=== PATIENT | male | born 1945 | race Caucasian/White ===

== ENCOUNTER 2024-03-16 10:45 | Emergency (ER) | payer MEDICARE, SELFPAY ==
[2024-03-16] VITALS (24 sets, daily range): BP systolic 118–160; BP diastolic 75–108
--- NOTE | 2024-03-16 11:24 | ED.GENMED ---
History of Present Illness
General
Chief Complaint: Heart Rate Problem
Source: patient and family
Exam Limitations: none
Time Seen by Provider: 03/16/24 11:05
History of Present Illness
History of Present Illness:
See MDM
Past History
Past History
ED Past Medical History: Arrthythmia, HTN and Hypercholesterolemia
ED Past Surgical History: Cardiac
Social History
Tobacco: Non-smoker
Alcohol: None
Phy Exam
Physical Exam
Physical Exam:
See MDM
Course
Orders/Labs/Results
Orders:
Orders
03/16/24 11:01
ECG [Electrocardiogram (*1)] Urgent
Reason for Study: Tachycardia
EKG- Treatment ONCE
03/16/24 11:22
Diltiazem 125 mg/125 ml Nss [Cardizem] 125 mg in 125 ml .ROUTE .STK-MED
Diltiazem 125 mg/125 ml Nss [Cardizem] 125 mg in 125 ml IV NOW
Initial dose in mg/hr, then titrate:: 5
Titrate to keep:: Heart rate 80-100 bpm
Titrate by mg/hr:: 5 mg/hr
Frequency of titrations (minutes):: 15
Maximum dose in mg/hr:: 15
Diltiazem HCl [Cardizem] 20 mg IV NOW STA
Diltiazem HCl [Cardizem] 25 mg .ROUTE .STK-MED ONE
03/16/24 11:25
Complete Blood Count/With Diff Urgent
Comprehensive Metabolic Panel Urgent
Free T4 Urgent
Magnesium Urgent
Comment: ADD ON
PTT Urgent
Prothrombin Time Urgent
TSH Reflex To Free T4 Urgent
Comment: ADD ON
03/16/24 11:27
Add On- LAB Urgent
Tests Added?: Magnesium, TSH reflex Free T4
03/16/24 12:56
Metoprolol Xl [Toprol Xl] 25 mg PO NOW STA
Abnormal Lab Results
03/16/24
11:25
RBC 4.63 L 10^6/uL
(4.70-6.10)
Abs Immat Gran (auto) 0.1 H 10^3/uL
(0-0.05)
Absolute Monos (auto) 1.2 H 10^3/uL
(0.1-0.6)
Lymphocytes % 16.6 L %
(20.5-51.1)
Monocytes % 12.4 H %
(1.7-9.3)
PT 20.8 H Sec
(11.4-14.6)
APTT 43.4 H Sec
(23.4-35.0)
BUN 26 H mg/dl
(9-20)
Creatinine 1.4 H mg/dL
(0.7-1.3)
Glucose 118 H mg/dl
(70-99)
TSH (Reflex) 8.59 H uIU/ml
(0.47-4.68)
03/16/24 11:25
03/16/24 11:25
Vital Signs
Initial and Last Documented VS:
Initial Vital Signs
Temp Pulse Resp BP Pulse Ox
97.6 F 163 20 152/108 96
03/16/24 10:57 03/16/24 10:57 03/16/24 10:57 03/16/24 10:57 03/16/24 10:57
Last Documented Vital Signs
Temp Pulse Resp BP Pulse Ox
97.6 F 82 19 127/86 96
03/16/24 10:57 03/16/24 14:50 03/16/24 14:50 03/16/24 14:50 03/16/24 14:50
MDM/Problems Addressed
Differential Diagnosis Includes:
HPI and MDM Narrative:
79-year-old male presenting for chest tightness and rapid heart rate. Patient states he was diagnosed with A-fib over the past few weeks and he was placed on Xarelto. He was admitted at [facility] and required an aortic valve replacement. Patient
states he received his monitoring engineer today and he noted that his heart rate was fast. It is not certain how long patient has been in A-fib.
Given the short duration of Xarelto so far, he is not a cardioversion candidate. Will give dose of Cardizem and place on cardizem drip
Physical exam
General: Well appearing and non-toxic
HEENT: protecting airway
Neck: appears supple
CV: No evidence of cyanosis. Tachycardic and irregular
Resp: No accessory muscle use. Lungs clear
Abd: Non-distended
Extremities: No deformities
Neuro: alert
Psych: Normal affect
Skin: Intact
Problems Addressed including Acute and Chronic Conditions affecting care:
1. A-fib with RVR
Acuity: acute
Prognosis: unstable
Details: Given the short duration of Xarelto so far, he is not a cardioversion candidate. Will place on Cardizem drip
Updates
After IV push of Cardizem, patient's heart rate went to the 80s. All this chest discomfort resolved. He was then placed on the Cardizem drip. He remained in rate controlled a flutter. At this time, I gave an extra dose of metoprolol and I turned
off the drip. Patient has remained in the 80s and symptom-free for over an hour. Patient states he wants to go home and will follow-up with his cardiothoracic surgeon at [facility] tomorrow. Discussed taking an extra dose of metoprolol before bed
Differential Diagnosis (but not limited to): A-fib with RVR, hyperthyroidism, ACS
Testing considered: Chest x-ray
Drug therapy (if applicable): OTC meds, please see d/c instruction regarding Rx drugs
Amount and/or Complexity of Data Reviewed
Clinical info obtained from: Patient
External data reviewed: N/A
Labs I independently reviewed (but not limited to): Free T4 normal
Radiology: N/A
Pulse Ox: not hypoxic
EKG independently reviewed: A-fib with RVR, normal axis, no STEMI
User Interface Engineer: A-fib
Critical Care: The high probability of a clinically significant, sudden or life threatening deterioration of the cardiovascular system(s) required my full and direct attention, intervention and personal management. The aggregate critical care time
was 33 minutes. This time is in addition to time spent performing reported procedures but includes the following:
[x] Data Review and interpretation
[x] Patient assessment and monitoring of vital signs
[x] Documentation
[x] Medication orders and management
Risk of Complication:
Social Determinants of health: Good social support
Discussed with other providers: N/A
Escalation of Care includes Admit/Obs: After being observed in the Emergency Department, pt stable for discharge.
Occasional wrong word or 'sound a like' substitutions may have occurred due to the inherent limitations of voice recognition software. Read the chart carefully and recognize, using context, where substitutions have occurred.
*Critical Care Note
Total Time (30-74mins, 75-104mins- exclusive of procedures): 33 min
ED Attending Note
-
Portions of this chart may have been created with voice recognition software.� Occasional wrong word or��sound alike� substitutions may have occurred due to the inherent limitations of voice recognition software.
Discharge Plan
Departure
Patient Disposition: Home (Routine Discharge)
Date of Disposition: 03/16/24
Time of Disposition: 14:57
Patient with high blood pressure during this ER visit?: No
Discharge Problem:
Atrial flutter
Prescriptions:
No Action
atorvastatin [Lipitor] 80 mg Tablet
80 mg PO DAILY
metoprolol succinate [Toprol XL] 25 mg Tablet Extended Release 24 Hr
25 mg PO DAILY
valsartan 40 mg Tablet
20 mg PO BID
Xarelto 20 mg Tablet
20 mg PO DAILY
Referrals:
Hector Buckley MD [Family Provider] -
Activity Restrictions/Additional Instructions:
Please take another dose of metoprolol before bed. If your heart rate is less than 100 in the morning, take your normal dose of metoprolol. If your heart rate is greater than 100, take 2 tablets.
Please return for any worsening symptoms.
You may return at any time if you have further concerns.
Please keep your cardiothoracic surgery follow-up appointment tomorrow.
Interventions
Interventions:
*Risk Screen - Suicide Last Done: 03/16/24 11:50
*General Assessment Last Done: 03/16/24 11:50
*Neglect/Abuse Screening Last Done: 03/16/24 11:50
ED- Fall Risk Assessment Last Done: 03/16/24 11:50
*ED COVID-19 Vaccine History Last Done: 03/16/24 11:50
ED- Cardiac Assessment Last Done: 03/16/24 11:50
ED- Pulmonary Assessment Last Done: 03/16/24 11:50
Discharge Date and Time
Print Language: ZIMB[place]WE[place]
[2024-03-16 11:33] LABS: % Basophils 0.2 % (0-2); % Eosinophils 2.4 % (0-6); % Immature Granulocytes 0.5 % (0-0.5); % Lymphocytes 16.6 % (20.5-51.1); % Monocytes 12.4 % (1.7-9.3); % Neutrophils 67.9 % (42.2-75.2); Absolute Eosinophils 0.2 10^3/uL (0-0.7); Absolute Immature Granulocytes 0.1 10^3/uL (0-0.05); Absolute Lymphocytes 1.6 10^3/uL (1.2-3.4); Absolute Monocytes 1.2 10^3/uL (0.1-0.6); Absolute Neutrophils 6.5 10^3/uL (1.4-6.5); Hematocrit 42.1 % (39.0-52.0); Hemoglobin 14.2 g/dL (13.0-18.0); Mean Corp Hgb Conc. 33.7 g/dL (33.0-37.0); Mean Corpuscular Hgb 30.7 pg (27.0-31.0); Mean Corpuscular Volume 90.9 fL (80.0-94.0); Mean Platelet Volume 10.3 fL (7.4-10.4); Nucleated Red Blood Cells % 0 % (-); Platelet Count 236 10^3/uL (130-400); Red Blood Cell Count 4.63 10^6/uL (4.70-6.10); Red Cell Dist. Width 13.1 % (11.5-14.5); White Blood Cell Count 9.6 10^3/uL (4.8-10.8)
[2024-03-16] MEDS: CARDIZEM 125 IV (11:33)
[2024-03-16] MEDS: CARDIZEM 20 MG IV (11:33)
[2024-03-16 11:47] LABS: ALT (SGPT) 31 U/L (0-50); AST (SGOT) 24 U/L (17-59); Alkaline Phosphatase 83 U/L (38-126); Blood Urea Nitrogen 26 mg/dl (9-20); Calcium 9.2 mg/dl (8.4-10.2); Carbon Dioxide 26 mmol/L (22-30); Chloride 103 mmol/L (98-107); Glucose 118 mg/dl (70-99); Potassium 4.9 mmol/L (3.5-5.1); Sodium 139 mmol/L (135-145); Total Bilirubin 1.2 mg/dl (0.2-1.3); Total Protein 6.5 g/dl (6.3-8.2); eGFR 50.81
[2024-03-16 11:54] LABS: INR 1.77; PT 20.8 Sec (11.4-14.6)
[2024-03-16 11:55] LABS: APTT 43.4 Sec (23.4-35.0)
[2024-03-16 12:05] LABS: Magnesium 1.8 mg/dl (1.6-2.3)
[2024-03-16] MEDS: TOPROL XL 25 MG PO (13:15)
[2024-03-16 14:02] LABS: TSH Reflex To Free T4 8.59 uIU/ml (0.47-4.68)
[2024-03-16 14:32] LABS: Free T4 1.07 ng/dl (0.78-2.19)
== END 2024-03-16 15:00 | disposition home or self-care (01) ==
LOC: EMR 10:45
PROVIDERS: EMERGENCY PHYSICIAN Student in an Organized Health Care Education/Training Program; FAMILY PHYSICIAN Internal Medicine
DX: I48.92 Unspecified atrial flutter (principal); R07.89 Other chest pain; I11.9 Hypertensive heart disease without heart failure
CPT/HCPCS: 99291; 96365; 96366; 80053; 83735; 84439; 84443; 85025; 85610; 85730; 93005

== ENCOUNTER 2024-06-28 16:32 | Outpatient (RCR) | payer MEDICARE, SELFPAY | END 2024-06-28 23:59 | disposition home or self-care (01) | LOC: CRHB 16:32 | PROVIDERS: Internal Medicine Cardiovascular Disease | DX: I50.22 Chronic systolic (congestive) heart failure (principal) | CPT/HCPCS: G0422 ==

== ENCOUNTER 2024-07-27 09:37 | Outpatient (RCR) | payer MEDICARE, SELFPAY ==
[2024-07-05 12:13] LABS: Glucose - Point of Care 91 mg/dl (70-99)
[2024-07-05 13:24] LABS: Glucose - Point of Care 97 mg/dl (70-99)
[2024-07-06 09:27] LABS: Glucose - Point of Care 115 mg/dl (70-99)
[2024-07-06 10:24] LABS: Glucose - Point of Care 83 mg/dl (70-99)
== END 2024-07-27 23:59 | disposition home or self-care (01) ==
LOC: CRHB 09:37
PROVIDERS: ATTENDING PHYSICIAN Internal Medicine Cardiovascular Disease
DX: I50.22 Chronic systolic (congestive) heart failure (principal); I25.10 Atherosclerotic heart disease of native coronary artery without angina pectoris; I25.2 Old myocardial infarction; Z95.3 Presence of xenogenic heart valve
CPT/HCPCS: 82962; G0422; G0423

== ENCOUNTER 2024-08-29 10:43 | Outpatient (RCR) | payer MEDICARE, SELFPAY | END 2024-08-29 23:59 | disposition home or self-care (01) | LOC: CRHB 10:43 | PROVIDERS: ATTENDING PHYSICIAN Internal Medicine Cardiovascular Disease | DX: I50.22 Chronic systolic (congestive) heart failure (principal); I25.10 Atherosclerotic heart disease of native coronary artery without angina pectoris; Z95.2 Presence of prosthetic heart valve | CPT/HCPCS: G0422; G0423 ==

== ENCOUNTER 2024-09-16 00:37 | Emergency (ER) | payer MEDICARE, SELFPAY ==
[2024-09-16 00:41] VITALS: BP 184/100
[2024-09-16 01:48] VITALS: BMI 28.9
--- NOTE | 2024-09-16 02:33 | ED.GENMED ---
History of Present Illness
General
Chief Complaint: Nose Bleed
Source: patient and family
Time Seen by Provider: 09/16/24 02:23
History of Present Illness
History of Present Illness:
79-year-old male with past medical history of atrial fibrillation, hypertension, hyperlipidemia presenting to the emergency department for evaluation of left nare epistaxis that began earlier this evening, has been off and on for the better part of
the last week. Patient is on Xarelto due to a history of atrial fibrillation, reports he did take it this evening and only takes the Xarelto once daily at nighttime. Patient denies any fevers or infectious symptoms. Does note that he was recently
hospitalized at the [facility] for heart failure exacerbation, has been on the Xarelto since January or February of this past year. Does note a history of nosebleeds in the past and has required packing before but states that was many
years ago.
Past History
Past History
ED Past Medical History: Arrthythmia, CVA, HTN, Hypercholesterolemia and Valvular disease
ED Past Surgical History: Cardiac
Social History
Tobacco: Non-smoker
Alcohol: None
Drug: None
Personal:
Living: with family
Review of Systems
Review of Systems
All Other Systems: ROS reviewed and negative except as documented in HPI and ROS
Phy Exam
Physical Exam
Physical Exam:
GENERAL: Alert , in no apparent distress
EYE: conjunctiva clear
Head: Normocephalic atraumatic
NECK: Supple,
ENT: mmm. Dried blood within the posterior oropharynx. Packing from nasal tissue in both naris was removed. No evidence for septal hematoma. There is dried blood within the left nare but no active bleeding or oozing
LUNGS: no acute respiratory distress
NEUROLOGICAL: Alert and oriented
SKIN: Warm and dry, skin intact. No petechiae
MUSCULOSKELETAL: well perfused.
PSYCH: Normal and appropriate interaction.
Scores
Heart Failure Risk
Heart Failure Risk Score: Not Applicable
Heart Score for Chest Pain Patients
STEMI patient?: Not applicable
Withdrawal Assessment of Alcohol
Withdrawal Assessment Completed?: Not applicable
Course
Vital Signs
Initial and Last Documented VS:
Initial Vital Signs
Temp Pulse Resp BP Pulse Ox
97.4 F 70 22 184/100 96
09/16/24 00:41 09/16/24 00:41 09/16/24 00:41 09/16/24 00:41 09/16/24 00:41
Last Documented Vital Signs
Temp Pulse Resp BP Pulse Ox
97.4 F 54 20 156/81 98
09/16/24 00:41 09/16/24 03:10 09/16/24 03:10 09/16/24 03:10 09/16/24 03:10
MDM/Problems Addressed
Differential Diagnosis Includes:
Anterior epistaxis, no evidence for septal hematoma, minimal concern for anemia
MDM/Problems Addressed:
79-year-old male presenting to the emergency department for evaluation of left nare epistaxis that began earlier this evening. On arrival to the ER nasal clamp was placed. I removed nasal clamp and the packing that patient had placed while at home
and there does not appear to be any active bleeding. We discussed holding Xarelto for 24 hours. Will observe patient in the ER without any nasal clamp or packing in place to see if he remains stable. As long as no further episodes of bleeding we
will discharge the patient home with information for outpatient ENT follow-up. Advised patient on avoidance of placing anything in his nose, nasal picking or blowing his nose hard as this could cause further bleeding. We also discussed use of
saline nasal spray and humidifier to help keep nasal passages moist.
Chronic conditions affecting care: Arrhythmia
*Pulse Oximetry
Patient hypoxic: no
*Critical Care Note
Total Time (30-74mins, 75-104mins- exclusive of procedures): Not Applicable
Patient Management
Escalation/DeEscalation of care consider admission/obs:
No further epistaxis. Stable for d/c home. Patient advised to hold his xarelto for 24 hours and then resume. Return precautions discussed
ED Attending Note
-
Portions of this chart may have been created with voice recognition software.� Occasional wrong word or��sound alike� substitutions may have occurred due to the inherent limitations of voice recognition software.
Discharge Plan
Departure
Patient Disposition: Home (Routine Discharge)
Date of Disposition: 09/16/24
Time of Disposition: 02:52
Patient with high blood pressure during this ER visit?: Yes
Discharge Problem:
Epistaxis
Instructions: Nosebleeds (DC)
Prescriptions:
No Action
atorvastatin [Lipitor] 80 mg Tablet
80 mg PO DAILY
metoprolol succinate [Toprol XL] 25 mg Tablet Extended Release 24 Hr
25 mg PO DAILY
valsartan 40 mg Tablet
20 mg PO BID
Xarelto 20 mg Tablet
20 mg PO DAILY
Referrals:
Hector Buckley MD [Family Provider] -
Enoc Shah MD [Active] - (ENT - Call for appointment)
Interventions
Interventions:
*Risk Screen - Suicide Last Done: 09/16/24 00:41
*General Assessment Last Done: 09/16/24 03:10
*Neglect/Abuse Screening Last Done: 09/16/24 01:49
ED- Fall Risk Assessment Last Done: 09/16/24 01:48
*ED COVID-19 Vaccine History Last Done: 09/16/24 01:49
*Nursing Disposition Last Done: 09/16/24 03:10
ED-EENT Assessment Last Done: 09/16/24 01:48
Discharge Date and Time
Discharge Date/Time: 09/16/24 03:12
Print Language: ARGENT[place]
[2024-09-16 03:10] VITALS: BP 156/81
== END 2024-09-16 03:12 | disposition home or self-care (01) ==
LOC: EMR 00:37
PROVIDERS: EMERGENCY PHYSICIAN Student in an Organized Health Care Education/Training Program; FAMILY PHYSICIAN Internal Medicine
DX: R04.0 Epistaxis (principal); I48.91 Unspecified atrial fibrillation; I10 Essential (primary) hypertension; E78.00 Pure hypercholesterolemia, unspecified; Z79.01 Long term (current) use of anticoagulants; Z86.73 Personal history of transient ischemic attack (TIA), and cerebral infarction without residual deficits
CPT/HCPCS: 99282

== ENCOUNTER 2024-09-26 09:00 | Outpatient (RCR) | payer MEDICARE, SELFPAY | END 2024-09-26 13:17 | disposition home or self-care (01) | LOC: CRHB 09:00 | PROVIDERS: ATTENDING PHYSICIAN Internal Medicine Cardiovascular Disease | DX: I50.22 Chronic systolic (congestive) heart failure (principal); I25.10 Atherosclerotic heart disease of native coronary artery without angina pectoris; Z95.2 Presence of prosthetic heart valve | CPT/HCPCS: G0422; G0423 ==

== ENCOUNTER → 2025-03-14 09:18 | Outpatient (REF) | payer MEDICARE, SELFPAY | LOC: WOUND 09:18 | PROVIDERS: ATTENDING PHYSICIAN Surgery | DX: L72.3 Sebaceous cyst (principal); L08.9 Local infection of the skin and subcutaneous tissue, unspecified; S21.209A Unspecified open wound of unspecified back wall of thorax without penetration into thoracic cavity, initial encounter; L02.212 Cutaneous abscess of back [any part, except buttock and flank]; I10 Essential (primary) hypertension; I25.10 Atherosclerotic heart disease of native coronary artery without angina pectoris; X58.XXXA Exposure to other specified factors, initial encounter | CPT/HCPCS: 87070; 87075; 87205; 99204 ==

== ENCOUNTER → 2025-03-21 09:12 | Outpatient (REF) | payer MEDICARE, SELFPAY | LOC: WOUND 09:12 | PROVIDERS: ATTENDING PHYSICIAN Surgery | DX: L72.3 Sebaceous cyst (principal); L08.9 Local infection of the skin and subcutaneous tissue, unspecified; S21.209A Unspecified open wound of unspecified back wall of thorax without penetration into thoracic cavity, initial encounter; L02.212 Cutaneous abscess of back [any part, except buttock and flank]; I10 Essential (primary) hypertension; I25.10 Atherosclerotic heart disease of native coronary artery without angina pectoris; X58.XXXA Exposure to other specified factors, initial encounter | CPT/HCPCS: 99213 ==

== ENCOUNTER → 2025-03-28 09:40 | Outpatient (REF) | payer MEDICARE, SELFPAY | LOC: WOUND 09:40 | PROVIDERS: ATTENDING PHYSICIAN Surgery | DX: I72.3 Aneurysm of iliac artery (principal); S21.209A Unspecified open wound of unspecified back wall of thorax without penetration into thoracic cavity, initial encounter; L97.211 Non-pressure chronic ulcer of right calf limited to breakdown of skin; L02.212 Cutaneous abscess of back [any part, except buttock and flank]; I10 Essential (primary) hypertension; I25.10 Atherosclerotic heart disease of native coronary artery without angina pectoris | CPT/HCPCS: 11042; 99213 ==

== ENCOUNTER → 2025-04-04 08:56 | Outpatient (REF) | payer MEDICARE, SELFPAY | LOC: WOUND 08:56 | PROVIDERS: ATTENDING PHYSICIAN Surgery | DX: L72.3 Sebaceous cyst (principal); L02.212 Cutaneous abscess of back [any part, except buttock and flank]; I10 Essential (primary) hypertension; I25.10 Atherosclerotic heart disease of native coronary artery without angina pectoris; S21.209A Unspecified open wound of unspecified back wall of thorax without penetration into thoracic cavity, initial encounter; X58.XXXA Exposure to other specified factors, initial encounter | CPT/HCPCS: 11042 ==

== ENCOUNTER → 2025-04-18 09:10 | Outpatient (REF) | payer MEDICARE, SELFPAY | LOC: WOUND 09:10 | PROVIDERS: ATTENDING PHYSICIAN Surgery | DX: L72.3 Sebaceous cyst (principal); S21.209A Unspecified open wound of unspecified back wall of thorax without penetration into thoracic cavity, initial encounter; L02.12 Furuncle of neck; I10 Essential (primary) hypertension; I25.10 Atherosclerotic heart disease of native coronary artery without angina pectoris; X58.XXXA Exposure to other specified factors, initial encounter | CPT/HCPCS: 99213 ==

== ENCOUNTER → 2025-04-27 11:54 | Outpatient (REF) | payer MEDICARE, SELFPAY ==
[2025-04-27 14:26] LABS: ALT (SGPT) 21 U/L (0-50); AST (SGOT) 21 U/L (17-59); Albumin 4.3 g/dl (3.5-5.0); Alkaline Phosphatase 62 U/L (38-126); Blood Urea Nitrogen 34 mg/dl (9-20); Calcium 9.0 mg/dl (8.4-10.2); Carbon Dioxide 28 mmol/L (22-30); Chloride 106 mmol/L (98-107); Glucose 80 mg/dl (70-99); Potassium 5.1 mmol/L (3.5-5.1); Sodium 140 mmol/L (135-145); Total Protein 6.8 g/dl (6.3-8.2); eGFR 35.00
== END ==
LOC: REG 11:54
PROVIDERS: ATTENDING PHYSICIAN Internal Medicine Cardiovascular Disease; FAMILY PHYSICIAN Internal Medicine
DX: I50.20 Unspecified systolic (congestive) heart failure (principal)
CPT/HCPCS: 36415; 80053

== ENCOUNTER → 2025-05-09 08:56 | Outpatient (REF) | payer MEDICARE, SELFPAY | LOC: WOUND 08:56 | PROVIDERS: ATTENDING PHYSICIAN Surgery | DX: L72.3 Sebaceous cyst (principal); L02.212 Cutaneous abscess of back [any part, except buttock and flank]; I10 Essential (primary) hypertension; I25.10 Atherosclerotic heart disease of native coronary artery without angina pectoris | CPT/HCPCS: 99213 ==

== ENCOUNTER → 2025-05-23 08:46 | Outpatient (REF) | payer MEDICARE, SELFPAY | LOC: WOUND 08:46 | PROVIDERS: ATTENDING PHYSICIAN Surgery | DX: L72.3 Sebaceous cyst (principal); S21.209A Unspecified open wound of unspecified back wall of thorax without penetration into thoracic cavity, initial encounter; L02.212 Cutaneous abscess of back [any part, except buttock and flank]; I10 Essential (primary) hypertension; I25.10 Atherosclerotic heart disease of native coronary artery without angina pectoris; X58.XXXA Exposure to other specified factors, initial encounter | CPT/HCPCS: 99212 ==

== ENCOUNTER → 2025-05-29 10:33 | Outpatient (REF) | payer MEDICARE, SELFPAY ==
[2025-05-29 12:30] LABS: Magnesium 2.1 mg/dl (1.6-2.3)
== END ==
LOC: REG 10:33
PROVIDERS: ATTENDING PHYSICIAN Nurse Practitioner Acute Care; FAMILY PHYSICIAN Internal Medicine
DX: I25.5 Ischemic cardiomyopathy (principal); I50.20 Unspecified systolic (congestive) heart failure
CPT/HCPCS: 36415; 83735

== ENCOUNTER → 2025-06-07 11:00 | Outpatient (REF) | payer MEDICARE, SELFPAY ==
[2025-06-07 12:28] LABS: Blood Urea Nitrogen 33 mg/dl (9-20); Calcium 8.7 mg/dl (8.4-10.2); Carbon Dioxide 28 mmol/L (22-30); Chloride 109 mmol/L (98-107); Glucose 98 mg/dl (70-99); Potassium 4.7 mmol/L (3.5-5.1); Sodium 142 mmol/L (135-145); eGFR 43.02
== END ==
LOC: REG 11:00
PROVIDERS: ATTENDING PHYSICIAN Nurse Practitioner Acute Care; FAMILY PHYSICIAN Internal Medicine
DX: I25.5 Ischemic cardiomyopathy (principal)
CPT/HCPCS: 36415; 80048